=== PATIENT | male | born 1945 | race Caucasian/White ===

== ENCOUNTER 2018-08-28 05:15 | Inpatient (IN) ==
--- NOTE | 2018-08-13 10:08 | EKG Report ---
Test Performed on : 08/13/2018 10:04:49 AM Test Reason : PAT Blood Pressure : / mmHG Vent. Rate : 056 BPM Atrial Rate : 056 BPM P-R Int : 186 ms QRS Dur : 102 ms QT Int : 388 ms P-R-T Axes : 098 032 011 degrees QTc Int : 374 ms Sinus bradycardia. Otherwise normal ECG No previous ECGs available Confirmed by Michael GALVEZ, Luis Miguel Tracy ([id number]) on 08/15/2018 9:01:23 AM
[2018-08-13 11:31] LABS: CALCIUM 9.9 mg/dL (8.8-10.2); CREATININE 1.5 mg/dL (0.7-1.2); POTASSIUM 4.4 mmol/L (3.5-5.1)
[2018-08-13 12:47] LABS: HEMATOCRIT 45.1 % (42.0-52.0); HEMOGLOBIN 15.2 g/dL (14.0-18.0); MCHC 33.7 g/dL (33-37); MCV 97.8 FL (81-99); MPV 10.6 FL (7.4-10.4); RBC 4.61 XMIL (4.7-6.1); RDW 13.7 % (11.5-14.5); WBC 21.32 X1000 (4.8-10.8)
--- NOTE | 2018-08-19 10:52 | Extremity Venous Study ---
PROCEDURE NAME: Vein Mapping Bilateral GSV - 08/14/2018 REFERRING PHYSICIAN: Dr. Yen. BAKER DOUGHNUT: Gela Peterson, MARY JO INDICATIONS: Evaluate for arterial bypass, right leg. FINDINGS: The right great saphenous vein was compressible throughout its length without evidence of thrombus. It measured below the knee 2.3 to 3.0 mm in greatest dimension. At the level of the knee, it measured 2.5 mm in greatest dimension. In the thigh, it measured 2.2 to 5.7 mm in greatest dimension. The left great saphenous vein was also compressible throughout its length without evidence of thrombus. It measured in the leg 2.0 to 2.3 mm in greatest dimension. At the knee, 1.6 mm in greatest dimension. In the left thigh, it measured 2.2 to 7.1 mm in greatest dimension. INTERPRETATION: Both great saphenous veins were patent without evidence of thrombus. The right great saphenous vein appears to be larger than the left throughout its length. cc: MD Balwinder Lambert MD
--- NOTE | 2018-08-28 00:36 | Extremity Venous Study ---
PROCEDURE NAME: Vein Mapping Right GSV - 08/27/2018 PROCEDURE: Right greater saphenous vein map. PHYSICIAN: Dr. Balwinder Yen. INTERPRETATION: Dr. Balwinder Yen. TRAIN CREW MEMBER: Nicholas. FINDINGS: Right greater saphenous vein at the takeoff measures 5.7 mm. Right greater saphenous vein in the proximal thigh is 3.7, mid thigh 3.1, distal thigh 2.7. At the knee 2.6, proximal calf 2.4, mid calf 2.2, distal calf 2.3. INTERPRETATION: Vein is compressible and appears acceptable as a conduit. cc: Balwinder Yen MD
[2018-08-28] MEDS ORDERED: LR 1,000 ML ONE ×2 (05:41→10:46)
[2018-08-28] MEDS ORDERED: KEFZOL 1 GM/D5W 1 GM/50 ML IVPB ONE (05:41)
[2018-08-28] MEDS ORDERED: FENTANYL ONE (05:48)
[2018-08-28] MEDS ORDERED: VERSED ONE (05:48)
[2018-08-28] MEDS ORDERED: KEFZOL ONE (06:32)
[2018-08-28] MEDS ORDERED: HEPARIN ONE (06:32)
[2018-08-28] MEDS ORDERED: NS 1,000 ML ONE (06:32)
[2018-08-28] MEDS ORDERED: PAPAVERINE ONE (06:33)
[2018-08-28] MEDS ORDERED: QUELICIN (DOSE) ONE (07:26)
[2018-08-28] MEDS ORDERED: XYLOCAINE-MPF 2% ONE (07:26)
[2018-08-28] MEDS ORDERED: STERILE WATER INJ. ONE (07:26)
[2018-08-28] MEDS ORDERED: NORCURON ONE (07:26)
[2018-08-28] MEDS ORDERED: DECADRON ONE (07:26)
[2018-08-28] MEDS ORDERED: OFIRMEV 1000 MG/ISOTONIC SOLN 1,000 MG/100 ML BOTTLE ONE (07:26)
[2018-08-28] MEDS ORDERED: ZOFRAN ONE (07:26)
[2018-08-28] MEDS ORDERED: HEPARIN (DOSE) ONE (08:09)
[2018-08-28] MEDS ORDERED: NS 500 ML ONE (08:30)
[2018-08-28] MEDS ORDERED: ROBINUL ONE (09:30)
[2018-08-28] MEDS: MORPHINE ONE ×6 (10:25→17:18)
[2018-08-28] MEDS ORDERED: MORPHINE ONE (10:45)
[2018-08-28 10:46] LABS: URINE SOURCE CATH
[2018-08-28 11:00] LABS: BILIRUBIN URINE NEGATIVE (NEGATIVE); BLOOD URINE NEGATIVE (NEGATIVE); COLOR YELLOW; GLUCOSE URINE NEGATIVE (NEGATIVE); KETONE URINE NEGATIVE (NEGATIVE); LEUKOCYTES URINE NEGATIVE (NEGATIVE); NITRITE URINE NEGATIVE (NEGATIVE); PROTEIN URINE 300 mg/dL (NEGATIVE); SP GRAVITY URINE 1.012; TURBIDITY URINE CLEAR (CLEAR); UROBILINOGEN URINE NORMAL (NORMAL)
[2018-08-28 11:01] LABS: UR EPITHELIAL CELLS <10 /HPF (<10); URINE BACTERIA NEGATIVE /HPF; URINE RBC <10 /HPF (<10); URINE WBC <10 /HPF (<10)
[2018-08-28] MEDS ORDERED: VENTOLIN HFA INH PRN (11:10)
[2018-08-28] MEDS ORDERED: ZOFRAN IV PRN (11:10)
[2018-08-28] MEDS: LR 1,000 ML IV SCH ×2 (11:30→23:13)
[2018-08-28] MEDS: DILAUDID IV PRN ×2 (13:35→23:12)
--- NOTE | 2018-08-28 14:59 | OPERATIVE NOTE ---
PROCEDURE DATE: 08/28/2018 PROCEDURE PERFORMED: Right superficial femoral artery patch angioplasty; right femoral to popliteal in situ vein bypass. SURGEON: Balwinder Yen MD. SUPERVISOR MOLD YARD: CATHERINE Sifuentes. 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 DESCRIPTION OF PROCEDURE: The vein was previously marked. He was brought to the operating room under satisfactory general endotracheal anesthesia. The right leg was prepped and draped in a sterile fashion. The foot was excluded. We made a vertical incision in the groin, and curved it along the course of the vein in the proximal medial thigh. We dissected down to the common femoral artery. We surrounded it with an umbilical tape. The profunda was identified and surrounded with a large vessel loop. The superficial femoral was surrounded with a large vessel loop. The pulse came down to the bifurcation of the common femoral. We then dissected out the proximal greater saphenous vein and ligated the branches. We marked the vein on its anterior aspect with a blue marker. We turned our attention to the distal medial thigh. I made a longitudinal incision anterior to the nadya on the skin and into the popliteal space. We identified the popliteal artery and surrounded the vessel loops proximally and distally. We then gave the patient 8000 units of heparin. I returned to the proximal incision. After the heparin had circulated for 3 minutes. We put the Satinsky clamp on the saphenous vein to the femoral vein junction, and amputated the greater saphenous vein. We then over sewed the stump with a 5-0 Prolene stitch using a horizontal mattress running stitch first followed by a running simple stitch. We then inspected the open end of the greater saphenous vein. No valve leaflets were identified at this opening. We then translocated over to the artery. It appeared to come only to the SFA, but the SFA was occluded so it became evident that we would have to open the artery for a portion of the proximal SFA in order for the vein graft to reach the artery. We then occluded flow in the deep femoral. We clamped off the common femoral, opened the distal common femoral, and extended into the proximal SFA. We then used a 0.8 x 8 bovine patch, and patched the proximal SFA in order to provide inflow to the proximal SFA. We used a 6-0 Prolene to construct this patch angioplasty. After completing that, we then incised the patch. Then under 2.5 loupe magnification, we constructed the anastomosis between the vein and the patch using a 5-0 Prolene stitch. We then allowed flow into the proximal vein. We turned our attention to the distal incision, and identified the vein in the posterior deep flap. A branch was identified. We then incised the branch with an #11 blade and then passed the Leona LeMaitre valvulotome up to the proximal anastomosis. We then opened it, and pulled it down to lyse the valves. We did that 2 times and after completing 2 passes, we had pulsatile flow into the branch. We clipped off the branch. We then mobilized the vein all the way to the end of the incision. It became apparent that that would be adequate length to reach the popliteal artery. We then clipped off the distal end and transected it, and then mobilized it back to the area where we had pulsatile flow. We took care to avoid twisting and ligated. We did ligate the branches coming off the vein. We then passed the Leona LeMaitre valvulotome up to the part of the vein that had pulsatile flow. We opened it, and then engaged the valves all the way to the end of the vein graft. We had again a good pulsatile flow after 2 passes, and then we clipped off the vein. We then translocated the vein into the popliteal space. We occluded flow in the popliteal artery proximally and distally, and used 11 blade to incise it on the medial wall of the artery. We did get back bleeding that was very healthy from the popliteal artery. We then clamped off the vein graft with the bulldog clamp, cut the clip off the end of the vein graft, and then incised it with the Cassidy scissors to match the arteriotomy. We then constructed this anastomosis with a 6-0 Prolene stitch beginning at the heel and going around the toe. Just prior to finishing the anastomosis, we flushed the vein graft. It was adequate with adequate pulsatile flow. We finished the patch of the anastomosis, and flow was established. There were 2 areas where branches were noted, and we cut down the medial aspect of the leg over a nadya and then dissected down through the vein. Here, we clipped off one of the branches. There was another branch more proximally. It really hit the most distal end of the proximal incision. We extended our incision there, and identified that branch and clipped it off as well. This was all the branches we could identify in the thigh region. Again, good pulsatile flow was present. A good pulse was noted within the vein graft. Hemostasis was satisfactory. We irrigated out both wounds with Kefzol- impregnated saline. We then closed the proximal wound in 2 layers with 2-0 Polysorb running. We placed a 3-0 Polysorb interrupted stitches in the subcutaneous tissue with a counter incision, and then some interrupted 3-0 Polysorb in the distal calf and distal thigh incision as well. Lockhart were then used to approximate the skin. Sterile dressings were applied. He tolerated it well. He was sent to recovery room in satisfactory condition. cc: Balwinder Yen MD
[2018-08-28] MEDS: PLAVIX PO SCH (17:17)
[2018-08-28] MEDS: KEFZOL 1 GM/D5W 1 GM/50 ML IVPB IV SCH ×2 (17:37→23:13)
[2018-08-28] MEDS: SYMBICORT 160/4.5 MICROGM INHALER INH SCH (19:41)
[2018-08-28] MEDS: PERIDEX MT SCH (20:33)
[2018-08-28] MEDS: PRAVACHOL PO SCH (20:33)
[2018-08-29] MEDS: KEFZOL 1 GM/D5W 1 GM/50 ML IVPB IV SCH
[2018-08-29] MEDS ORDERED: LR 1,000 ML IV SCH (07:10)
[2018-08-29 07:34] LABS: BASO# 0.02 X1000 (0.0-0.2); BASO% 0.1 % (0.0-0.8); EOS# 0.07 X1000 (0.0-0.7); EOS% 0.4 % (0.0-10.0); HEMATOCRIT 36.3 % (42.0-52.0); HEMOGLOBIN 12.1 g/dL (14.0-18.0); IMM GRAN# 0.04 X1000 (0.0-0.04); IMM GRAN% 0.2 % (0.0-0.5); LYMPH# 12.01 X1000 (1.2-3.4); LYMPH% 62.5 % (20.5-51.1); MCHC 33.3 g/dL (33-37); MCV 98.9 FL (81-99); MONO# 1.09 X1000 (0.11-0.59); MONO% 5.7 % (1.7-9.3); MPV 10.4 FL (7.4-10.4); NEUT# 5.99 X1000 (1.4-6.5); NEUT% 31.1 % (42.2-75.2); PLT 134 X1000 (130-400); RBC 3.67 XMIL (4.7-6.1); RDW 13.4 % (11.5-14.5); WBC 19.22 X1000 (4.8-10.8)
[2018-08-29 07:36] LABS: CREATININE 1.2 mg/dL (0.7-1.2); POTASSIUM 4.4 mmol/L (3.5-5.1)
[2018-08-29] MEDS: SPIRIVA INH SCH (08:09)
[2018-08-29] MEDS: SYMBICORT 160/4.5 MICROGM INHALER INH SCH ×2 (08:09→19:34)
[2018-08-29] MEDS: FLONASE NAS SCH (09:23)
[2018-08-29] MEDS: PEPCID PO SCH (09:25)
[2018-08-29] MEDS: PERIDEX MT SCH ×2 (09:25→21:07)
[2018-08-29] MEDS: ZYRTEC PO SCH (09:25)
[2018-08-29] MEDS: PRINIVIL PO SCH (09:26)
[2018-08-29] MEDS: VITAMIN D PO SCH (09:26)
[2018-08-29] MEDS: NORVASC PO SCH (09:26)
[2018-08-29] MEDS: ZYLOPRIM PO SCH (09:26)
[2018-08-29] MEDS: NEURONTIN PO SCH (09:26)
[2018-08-29] MEDS: ASPIRIN PO SCH (09:26)
[2018-08-29] MEDS: PLAVIX PO SCH (09:26)
[2018-08-29] MEDS: DILAUDID IV PRN ×2 (11:25→17:05)
--- NOTE | 2018-08-29 14:56 | GENERAL SURGERY PROGRESS NOTE ---
DATE: 08/29/2018 SUBJECTIVE: He is postop day 1 after a right femoral-popliteal in situ vein bypass. Today, he has a palpable graft pulse. He has a palpable posterior tibial pulse. His wounds were inspected. There was no evidence of bleeding. I treated all the wounds with Betadine and recovered them. He is afebrile, heart rate 67, blood pressure 124/70. PLAN: The plan today is to remove his Victor. He can get up and ambulate in the room. We will stop his Kefzol. He should be able to go home on Saturday if all continues well. He will need to go home on aspirin and Plavix. He will return to see me in the office in 10 days. cc: Balwinder Yen MD
[2018-08-29] MEDS: PRAVACHOL PO SCH (21:07)
[2018-08-30] MEDS: DILAUDID IV PRN ×2 (01:19→08:32)
[2018-08-30] MEDS: SYMBICORT 160/4.5 MICROGM INHALER INH SCH (07:22)
[2018-08-30] MEDS: SPIRIVA INH SCH (07:23)
[2018-08-30] MEDS: NORCO-10 PO PRN ×2 (08:17→12:13)
[2018-08-30] MEDS: FLONASE NAS SCH (08:18)
[2018-08-30] MEDS: PEPCID PO SCH (08:19)
[2018-08-30] MEDS: NEURONTIN PO SCH (08:19)
[2018-08-30] MEDS: NORVASC PO SCH (08:19)
[2018-08-30] MEDS: PRINIVIL PO SCH (08:20)
[2018-08-30] MEDS: PERIDEX MT SCH (08:20)
[2018-08-30] MEDS: VITAMIN D PO SCH (08:20)
[2018-08-30] MEDS: ZYRTEC PO SCH (08:20)
[2018-08-30] MEDS: ZYLOPRIM PO SCH (08:20)
[2018-08-30] MEDS: PLAVIX PO SCH (08:20)
[2018-08-30] MEDS: ASPIRIN PO SCH (08:21)
[2018-08-30 12:07] VITALS: BP 99/56
== END 2018-08-30 15:44 | disposition home or self-care (01) | DRG 254 ==
LOC: SURHOLD 05:15 → 4N 08:01
PROVIDERS: ADMIT Surgery; ATTEND Surgery
CPT/HCPCS: 80048; 81001; 85025; 85027; 93005; 93010; 93971; 94640; 94760; 94799; A9270; C1763; J0131; J0330; J0690; J1100; J1170; J1644; J2250; J2270; J2405; J2440; J3010; J7030; J7040; J7120